=== PATIENT | female | born 1955 ===

== ENCOUNTER 2019-05-17 06:27 | Day surgery (SDC) | payer MEDICAID ==
[~2019-05-17 06:27] MED LIST: Midazolam 1 MG/ML 2 ML SDV ONE; Sodium Chloride 0.9% 10 ML Syringe FLUSH PRN; fentaNYL 100 MCG/2 ML SDV ONE
[2019-05-17] MEDS ORDERED: fentaNYL 100 MCG/2 ML SDV IV ONE ×5 (06:28→08:10)
[2019-05-17] MEDS ORDERED: Midazolam 1 MG/ML 2 ML SDV IV ONE ×7 (06:28→08:00)
[2019-05-17] MEDS ORDERED: Dextrose 5%-0.45% NaCl 1,000 ML IV SCH (07:00)
--- NOTE | 2019-05-17 09:04 | OR ---
DATE: 05/17/2019 PROCEDURES: Total colonoscopy, narrow-band imaging, and cold snare polypectomy. INSTRUMENT USED: PCF-H190DL Olympus video colonoscope. PREMEDICATIONS: Fentanyl 150 mcg intravenous, Versed 4 mg intravenous, nasal O2 cannula. The procedure was done under pulse oximetry, BP recording, and weaver tire cord. INDICATION: Screening colonoscopic examination is done for detection of any polypoid lesions and removal, endoscopic hemostasis therapy if needed. DESCRIPTION OF PROCEDURE: Initial rectal exam was unremarkable. Rigid anoscopy showed small internal hemorrhoids without bleeding from them. The colonoscope was passed with ease. In the proximal sigmoid colon, 5 mm sized benign- appearing polyp was noted. NBI and magnification views were obtained. Photographs were taken. Cold snare polypectomy was done. The tissue was retrieved and sent for histopathology. The scope was passed with ease up to the ileocecal area. Photographs were taken of the normal-appearing cecum identified by landmarks of appendiceal orifice and double-bulged ileocecal folds. No bleeding was noted from any of the visualized areas at the commencement of the examination. The bowel preparation is found to be adequate, [place] scale 2. No stricture. No vascular ectasia. No large isolated ulcerations seen. No evidence of diffuse inflammatory bowel disease in the form of friability, contact bleeding, or ulcerations. Probing the proximal sides of folds and flexures using adequate distention and clearing up the stool material, withdrawal of the scope was made. Cecum to rectum time over 6 minutes. No bleeding was noted from any of the visualized areas at the completion of examination. IMPRESSION: 1. Internal hemorrhoids. 2. Sigmoid colonic polyp. The patient tolerated the procedure well. [facility] /[id number]
== END 2019-05-17 10:20 | disposition home or self-care (01) ==
LOC: DL.ENDO 06:27
PROVIDERS: ATTEND Internal Medicine Gastroenterology
DX: Z12.11 Encounter for screening for malignant neoplasm of colon (principal); D12.5 Benign neoplasm of sigmoid colon; K64.8 Other hemorrhoids; M19.90 Unspecified osteoarthritis, unspecified site; F17.210 Nicotine dependence, cigarettes, uncomplicated; Z88.6 Allergy status to analgesic agent; Z90.89 Acquired absence of other organs; Z98.890 Other specified postprocedural states
CPT/HCPCS: 45385; J2250; J3010; J7042

== ENCOUNTER 2024-07-27 10:42 | Emergency (ER) | payer MEDICARE, MEDICAID ==
[2024-07-27] MEDS: Ciprofloxacin 0.3% Ophth Soln 5 ML Bottle EYELF ONE (11:14)
[2024-07-27] MEDS: Acetaminophen 500 MG Tab PO ONE (11:14)
== END 2024-07-27 11:21 | disposition home or self-care (01) ==
LOC: DL.ED 10:42
DX: H72.92 Unspecified perforation of tympanic membrane, left ear (principal); F17.210 Nicotine dependence, cigarettes, uncomplicated; M19.90 Unspecified osteoarthritis, unspecified site; Z88.8 Allergy status to other drugs, medicaments and biological substances; Z79.899 Other long term (current) drug therapy; Z90.49 Acquired absence of other specified parts of digestive tract
CPT/HCPCS: 99282; 99283; A9270